=== PATIENT | female | born 1940 | race Caucasian/White ===

== ENCOUNTER 2020-10-25 12:05 | Emergency (ER) | payer MEDICARE ==
[~2020-10-25] VITALS: Ht 162.6 cm; Wt 59.9 kg
--- NOTE | 2020-10-25 12:10 | NUR ---
pt brought in by EMT from home where she lives with her daughter-hx of Ry-daughter found pt outside the house of the [facility]-brought her in and today called emt for assistance-
--- NOTE | 2020-10-25 12:20 | NUR ---
pt clothes removed/attached pt to monitor/vitals done/pt covered up for warmth with blankets pt assessment done -pt responds "yes" to everything-md Rodriguez at bedside
--- NOTE | 2020-10-25 12:38 | NUR ---
Xray at bedside
[2020-10-25] MEDS ORDERED: ATOR10TA PO (12:54)
[2020-10-25] MEDS ORDERED: SERT-438 PO (12:54)
[2020-10-25] MEDS ORDERED: DONE10TA44 PO (12:54)
[2020-10-25 14:19] LABS: BASOPHILS # (AUTO) 0.1 /CMM (0.0-0.2); BASOPHILS % (AUTO) 0.7 % (0.0-2.0); EOSINOPHILS % (AUTO) 0.1 % (0.0-6.0); HEMATOCRIT 40 % (33-45); HEMOGLOBIN 13.3 g/dL (11.5-14.8); LYMPHOCYTES # (AUTO) 1.3 /CMM (0.8-4.8); LYMPHOCYTES % (AUTO) 9.4 % (20.0-44.0); MEAN CORPUSCULAR HGB CONC 33 g/dl (31.0-36.0); MEAN CORPUSCULAR VOLUME 97 fL (82-100); MONOCYTES # (AUTO) 1.2 /CMM (0.1-1.30); MONOCYTES % (AUTO) 8.5 % (2.0-12.0); NEUTROPHILS % (AUTO) 81.3 % (43.0-81.0); PLATELET COUNT (AUTO) 222 /CMM (150-450); WHITE BLOOD COUNT (AUTO) 13.5 K/uL (4.3-11.0)
[2020-10-25 14:28] LABS: CALCIUM, SERUM 9.5 mg/dL (8.5-10.1); CREATININE 0.9 mg/dL (0.6-1.3); POTASSIUM 3.7 mmol/L (3.5-5.1)
--- NOTE | 2020-10-25 14:39 | NUR ---
rapid covid swab done and sent to lab
--- NOTE | 2020-10-25 14:42 | NUR ---
joe avila at bedside for EKG
[2020-10-25] MEDS ORDERED: IV NS 0.9% 1,000 ML IV PRN (15:00)
[2020-10-25] MEDS ORDERED: MORPHINE SULFATE INJ 2 MG/ML DISP.SYRIN IV PRN (15:00)
[2020-10-25] MEDS ORDERED: HYDROCODONE/APAP 5/325MG TABLET PO PRN (15:00)
[2020-10-25] MEDS ORDERED: TEMAZEPAM 15 MG CAPSULE PO PRN (15:00)
[2020-10-25] MEDS ORDERED: ACETAMINOPHEN 325 MG TABLET PO PRN (15:00)
[2020-10-25] MEDS ORDERED: ONDANSETRON HCL/PF 4 MG/2 ML VIAL IVP PRN (15:00)
[2020-10-25] MEDS ORDERED: MAG HYDROX/AL HYDROX/SIMETH 30 ML UDC PO PRN (15:00)
[2020-10-25] MEDS ORDERED: Z GUARD REMEDY 2 OZ OINT TP PRN (15:00)
[2020-10-25] MEDS ORDERED: MAGNESIUM HYDROXIDE 30 ML UDC PO PRN (15:00)
--- NOTE | 2020-10-25 15:43 | NUR ---
REPORT GIVEN TO NIDIA PINON OF [facility]
--- NOTE | 2020-10-25 17:53 | NUR ---
PER HOUSE SUP, HOLD PATIENT ADMISSION FOR AN HOUR, WAITING FOR INSURANCE PLACEMENT
--- NOTE | 2020-10-25 18:35 | NUR ---
PER LINE PAINTING MACHINE OPERATOR, PATIENT WILL BE TRANSFERRED TO [facility]. CALL [phone] FOR REPORT ETA 1HR
--- NOTE | 2020-10-25 18:50 | NUR ---
REPORT ALEXANDRO TO HOLGER , NURSE OF [facility]
--- NOTE | 2020-10-25 19:28 | NUR ---
IV removed. Catheter intact and site benign. Pressure and 4x4 applied to site. No bleeding noted.
--- NOTE | 2020-10-25 19:31 | NUR ---
Patient discharged to [facility] in stable condition.Clinicals provided to EMT to be given to facility. Patient will be transferred to [facility].
[2020-10-25 19:32] VITALS: BP 141/72
[2020-10-25] MEDS ORDERED: DONEPEZIL 5 MG TABLET PO SCH (22:00)
[2020-10-25] MEDS ORDERED: ATORVASTATIN 10 MG TABLET PO SCH (22:00)
[2020-10-26] MEDS ORDERED: PANTOPRAZOLE 40 MG TABLET.DR PO SCH (07:30)
[2020-10-26] MEDS ORDERED: SERTRALINE HCL 50 MG TABLET PO SCH (09:00)
== END 2020-10-25 19:40 ==
LOC: ER 12:13
DX: S79.911A Unspecified injury of right hip, initial encounter (principal); W18.30XA Fall on same level, unspecified, initial encounter; Y93.89 Activity, other specified; Y92.007 Garden or yard of unspecified non-institutional (private) residence as the place of occurrence of the external cause; Z20.822 Contact with and (suspected) exposure to COVID-19; F03.90 Unspecified dementia, unspecified severity, without behavioral disturbance, psychotic disturbance, mood disturbance, and anxiety; M16.11 Unilateral primary osteoarthritis, right hip
CPT/HCPCS: 36415; 71045; 72192; 73502; 80048; 85025; 85730; 87081; 87426; 93005; 99285; C9803